=== PATIENT | male | born 1935 | race Caucasian/White ===

== ENCOUNTER 2016-11-17 11:29 | Outpatient (CLI) | payer MEDICARE | END 2016-11-17 11:30 | disposition home or self-care (01) | DX: G30.9 Alzheimer's disease, unspecified (principal); F02.80 Dementia in other diseases classified elsewhere, unspecified severity, without behavioral disturbance, psychotic disturbance, mood disturbance, and anxiety; R41.89 Other symptoms and signs involving cognitive functions and awareness ==

== ENCOUNTER 2017-06-18 11:25 | Outpatient (CLI) | payer MEDICARE | END 2017-06-18 11:26 | disposition EMS.NT | LOC: EMS 11:25 | PROVIDERS: ATTEND Surgery | DX: R40.4 Transient alteration of awareness (principal) ==

== ENCOUNTER 2017-06-18 12:51 | Emergency (ER) | payer MEDICARE ==
[2017-06-18 15:06] LABS: BASOPHILS # (AUTO) 0.1 10^3/uL (0.0-0.1); BASOPHILS % (AUTO) 0.6 %; EOSINOPHILS % (AUTO) 0.1 %; HCT - HEMATOCRIT 42.5 % (42.0-52.0); HGB - HEMOGLOBIN 14.1 g/dL (14.0-18.0); LYMPHOCYTES # (AUTO) 0.8 10^3/uL (1.5-3.5); LYMPHOCYTES % (AUTO) 6.1 %; MEAN CORPUSCULAR HEMOGLOBIN 26.8 pg (27.0-31.0); MEAN CORPUSCULAR HGB CONC 33.3 g/dL (32.0-36.0); MEAN CORPUSCULAR VOLUME 80.5 fL (80.0-94.0); MEAN PLATELET VOLUME 8.1 fL (7.4-11.4); MONOCYTES # (AUTO) 0.9 10^3/uL (0.0-1.0); NEUTROPHILS # (AUTO) 10.7 10^3/uL (1.5-6.6); NEUTROPHILS % (AUTO) 86.2 %; NUCLEATED RED BLOOD CELLS AUTO 0.1 /100WBC; RED BLOOD COUNT 5.27 10^6/uL (4.70-6.10); RED CELL DISTRIBUTION WIDTH 14.6 % (12.0-15.0); UNCORRECTED WHITE BLOOD COUNT 12.4 x10^3/uL; WHITE BLOOD COUNT 12.4 x10^3/uL (4.8-10.8)
[2017-06-18 15:19] LABS: ALBUMIN/GLOBULIN RATIO 1.1 (1.0-2.2); CALCIUM 9.5 mg/dL (8.5-10.3); CREATININE 1.3 mg/dL (0.6-1.2); TOTAL PROTEIN 7.6 g/dL (6.7-8.2)
--- NOTE | 2017-06-18 16:17 | ED Physician Documentation ---
PD HPI SYNCOPE - Stated complaint Stated Complaint: SYNCOPE - Chief complaint Chief Complaint: Neuro - History obtained from History obtained from: Patient - History of Present Illness Witnessed: Witnessed Timing - onset: How many hours ago (1) Duration: Seconds (he was helping in soup kitchen, had not had anything to eat nor drink in the morning. He got up and walked to the back of the area and felt abruptly lightheaded then fainted. He denies injury. Was out for just few seconds, with report of looking pale at the time. Improved promptly. EMS called and the patient was feeling okay enroute to the ED.) Preceding symptoms: Light headed. No: Headache, Chest pain, Abdominal pain, Nausea / vomiting Associated symptoms: No: Headache, Chest pain, Abdominal pain Contributing factors: Decreased PO intake, Just stood up. No: Recent med change , Noxious stimulae Injury occurred: No: Fell, Head injury, Neck injury Similar symptoms before: Has not had sx before Recently seen: Not recently seen Review of Systems Constitutional: denies: Fever, Chills Nose: denies: Rhinorrhea / runny nose, Congestion Throat: denies: Sore throat Cardiac: denies: Chest pain / pressure, Palpitations Respiratory: denies: Cough GI: denies: Abdominal Pain, Nausea, Vomiting, Diarrhea : denies: Dysuria, Frequency Skin: denies: Rash, Lesions Musculoskeletal: denies: Extremity swelling Neurologic: reports: Syncope. denies: Focal weakness, Numbness, Altered mental status, Headache, Head injury Endocrine: denies: Weight loss Immunocompromised: denies: Immunocompromised PD PAST MEDICAL HISTORY - Past Medical History Past Medical History: Yes Cardiovascular: Hypertension Endocrine/Autoimmune: None : Benign prostate hypertrophy, Indwelling catheter, Other - Past Surgical History Past Surgical History: Yes General: Appendectomy Ortho: Other - Present Medications Home Medications: Ambulatory Orders Medication Instructions Recorded Confirmed Amoxicillin 500 mg ORAL TID 08/12/16 08/12/16 Hydrochlorothiazide 25 mg ORAL DAILY 08/12/16 08/12/16 Sulfamethoxazole/Trimethoprim 1 each PO BID 7 Days 08/12/16 [Bactrim Ds Tablet] Tamsulosin [Flomax] 0.4 mg ORAL DAILY 08/12/16 08/12/16 Potassium Chloride 10 meq PO DAILY #7 tablet.er 06/18/17 - Allergies Allergies/Adverse Reactions: Allergies Allergy/AdvReac Type Severity Reaction Status Date / Time No Known Drug Allergies Allergy Verified 08/12/16 12:03 - Social History Does the pt smoke?: No Smoking Status: Never smoker Does the pt drink ETOH?: Yes Does the pt have substance abuse?: No - Immunizations Immunizations are current?: Yes PD ED PE NORMAL - Vitals Vital signs reviewed: Yes - General General: Alert and oriented X 3, No acute distress, Well developed/nourished - HEENT HEENT: Ears normal, Moist mucous membranes, Pharynx benign - Neck Neck: Supple, no meningeal sign, No adenopathy - Cardiac Cardiac: RRR, No murmur - Respiratory Respiratory: Clear bilaterally - Abdomen Abdomen: Soft, Non tender - Back Back: No CVA TTP - Derm Derm: Normal color, Warm and dry - Extremities Extremities: No deformity, No tenderness to palpate, No edema, No calf tenderness / cord - Neuro Neuro: Alert and oriented X 3, No motor deficit, No sensory deficit, Normal speech - Psych Psych: Normal mood, Normal affect Results - Vitals Vitals: Vital Signs - 24 hr 06/18/17 06/18/17 06/18/17 13:08 16:00 17:08 Temperature 36.6 C 37.2 C Heart Rate 62 57 L 66 Respiratory 16 18 18 Rate Blood Pressure 123/71 150/49 H 128/48 L O2 Saturation 100 100 99 Oxygen O2 Source Room air - EKG (time done) 14:21 Rate: [place] (52) Rhythm: Sinus bradycardia, Other [place]: Normal Intervals: Normal [place] QRS: Normal Ischemia: Normal ST segments. No: ST elevation c/w ischemia, ST depression - Labs Labs: Laboratory Tests 06/18/17 06/18/17 06/18/17 14:52 14:52 14:52 WBC 12.4 H RBC 5.27 Hgb 14.1 Hct 42.5 MCV 80.5 MCH 26.8 L MCHC 33.3 RDW 14.6 Plt Count 190 MPV 8.1 Neut # 10.7 H Lymph # 0.8 L Noble # 0.9 Eos # 0.0 Baso # 0.1 Absolute Nucleated RBC 0.01 Nucleated RBCs 0.1 Sodium 140 Potassium 3.0 L Chloride 100 L Carbon Dioxide 29 Anion Gap 11.0 BUN 28 H Creatinine 1.3 H Estimated GFR (MDRD) 53 L Glucose 121 H Calcium 9.5 Total Bilirubin 1.0 AST 17 ALT 15 Alkaline Phosphatase 83 Troponin I < 0.04 Total Protein 7.6 Albumin 4.0 Globulin 3.6 Albumin/Globulin Ratio 1.1 Lipase 34 PD MEDICAL DECISION MAKING - ED course Complexity details: reviewed results, re-evaluated patient (he is looking good in ED, without lightheadedness or such. Sounds like his postural syncope relates to no fluid/food intake today and then was helping in soup kitchen (but he says it was not too hot there). ), considered differential, d/w patient Departure - Departure Disposition: Home, Self Care Clinical Impression: Episode of syncope Qualifiers: Syncope type: unspecified Qualified Code(s): R55 - Syncope and collapse Condition: Stable Record reviewed to determine appropriate education?: Yes Instructions: ED Fainting Unkn Cause Follow-Up: Arielle Moscoso ARNP [Primary Care Provider] - Prescriptions: Potassium Chloride 10 meq PO DAILY #7 tablet.er Comments: Keep well hydrated. Try to have some breakfast in the mornings before heading out for the day. Drink water through the day. It sounds like your fainting today may have been related to under hydration. Follow-up with your primary care if you have repeated episodes of fainting or lightheadedness or associated with any chest pain, trouble breathing, headaches or other concerns. Your potassium is a bit low which might relate to 20 her blood pressure medicines that you take (the diuretic). Take a potassium supplement daily for a week. Follow-up with your primary care. Discharge Date/Time: 06/18/17 17:09
[2017-06-18] MEDS ORDERED: POTASSIUM BICARB 25 MEQ TABLET PO STA (16:46)
[2017-06-18] MEDS ORDERED: POTASSIUM BICARB 25 MEQ TABLET PO ONE (17:06)
[2017-06-18 17:09] VITALS: BP 128/48
== END 2017-06-18 17:09 | disposition home or self-care (01) ==
LOC: ED 12:51
DX: R55 Syncope and collapse (principal); I10 Essential (primary) hypertension; N40.0 Benign prostatic hyperplasia without lower urinary tract symptoms
CPT/HCPCS: 36415; 80053; 83690; 84484; 85025; 93005; 99283; 99284; A9270

== ENCOUNTER 2017-07-13 13:53 | Outpatient (CLI) | payer MEDICARE ==
[2017-07-13 18:52] LABS: BUN - BLOOD UREA NITROGEN 28 mg/dL (6-20); CALCIUM 9.4 mg/dL (8.5-10.3); CARBON DIOXIDE - CO2 28 mmol/L (21-32); CHLORIDE 99 mmol/L (101-111); GFR - MDRD 72 (>89); GLUCOSE 84 mg/dL (70-100); POTASSIUM 3.5 mmol/L (3.5-5.0); SODIUM 137 mmol/L (135-145)
== END 2017-07-13 13:54 | disposition home or self-care (01) ==
LOC: LAB.S 13:53
PROVIDERS: ATTEND Nurse Practitioner Family
DX: E87.6 Hypokalemia (principal); Z12.11 Encounter for screening for malignant neoplasm of colon; R41.89 Other symptoms and signs involving cognitive functions and awareness; Z13.29 Encounter for screening for other suspected endocrine disorder
CPT/HCPCS: 36415; 80048; 84443

== ENCOUNTER 2017-12-15 09:15 | Outpatient (CLI) | payer MEDICARE ==
--- NOTE | 2017-12-15 13:43 | XRAY Report ---
MODIFIED BARIUM SWALLOW: 12/15/2017 CLINICAL INDICATION: Dysphagia, Alzheimer's. FINDINGS: Various consistencies of barium were prepared and administered in conjunction with Speech Pathology. There was no evidence of penetration or aspiration with any administered consistency. Please also refer to full report from Speech Pathology for further findings. IMPRESSION: NO EVIDENCE OF PENETRATION OR ASPIRATION. FLUOROSCOPY TIME: One minute 44 seconds; 1 spot image obtained (cinefluoroscopy recorded). TD: 12/15/2017 13:42
== END 2017-12-15 09:16 | disposition home or self-care (01) ==
LOC: DI 09:15
PROVIDERS: ATTEND Nurse Practitioner Family
DX: R13.10 Dysphagia, unspecified (principal); G30.9 Alzheimer's disease, unspecified; F02.80 Dementia in other diseases classified elsewhere, unspecified severity, without behavioral disturbance, psychotic disturbance, mood disturbance, and anxiety
CPT/HCPCS: 74230

== ENCOUNTER 2018-02-08 08:00 | Outpatient (CLI) | payer MEDICARE | END 2018-02-08 23:59 | LOC: LAB.S 08:00 | PROVIDERS: ATTEND Nurse Practitioner Family | DX: R94.6 Abnormal results of thyroid function studies (principal) | CPT/HCPCS: 36415; 84443 ==

== ENCOUNTER 2018-05-24 11:02 | Outpatient (CLI) | payer MEDICARE | END 2018-05-24 11:03 | disposition home or self-care (01) | LOC: LAB.F 11:02 | PROVIDERS: ATTEND Student in an Organized Health Care Education/Training Program | DX: N21.0 Calculus in bladder (principal); R97.20 Elevated prostate specific antigen [PSA]; N40.1 Benign prostatic hyperplasia with lower urinary tract symptoms; R35.0 Frequency of micturition | CPT/HCPCS: 36415; 84153 ==

== ENCOUNTER 2018-12-28 08:00 | Outpatient (CLI) | payer MEDICARE ==
[2018-12-28 19:27] LABS: CALCIUM 9.3 mg/dL (8.5-10.3); CREATININE 1.2 mg/dL (0.6-1.2)
[2018-12-28 19:32] LABS: BASOPHILS # (AUTO) 0.1 10^3/uL (0.0-0.1); BASOPHILS % (AUTO) 0.9 %; EOSINOPHILS # (AUTO) 0.2 10^3/uL (0.0-0.7); EOSINOPHILS % (AUTO) 3.3 %; HGB - HEMOGLOBIN 13.2 g/dL (14.0-18.0); LYMPHOCYTES # (AUTO) 1.2 10^3/uL (1.5-3.5); LYMPHOCYTES % (AUTO) 16.7 %; MEAN CORPUSCULAR HEMOGLOBIN 26.3 pg (27.0-31.0); MEAN CORPUSCULAR HGB CONC 33.1 g/dL (32.0-36.0); MEAN CORPUSCULAR VOLUME 79.5 fL (80.0-94.0); MEAN PLATELET VOLUME 8.4 fL (7.4-11.4); MONOCYTES # (AUTO) 0.9 10^3/uL (0.0-1.0); NEUTROPHILS # (AUTO) 4.8 10^3/uL (1.5-6.6); NEUTROPHILS % (AUTO) 67.1 %; PLT - PLATELET COUNT 244 10^3/uL (130-450); RED BLOOD COUNT 5.03 10^6/uL (4.70-6.10); RED CELL DISTRIBUTION WIDTH 14.5 % (12.0-15.0); WHITE BLOOD COUNT 7.2 x10^3/uL (4.8-10.8)
[2018-12-28 19:41] LABS: PSA FREE 1.03 ng/mL (0.16-2.81)
[2018-12-28 19:42] LABS: PSA TOTAL 4.55 ng/mL (0.000-2.000)
== END 2018-12-28 23:59 | disposition home or self-care (01) ==
LOC: LAB.N 08:00
PROVIDERS: ATTEND Physician Assistant Medical
DX: N40.1 Benign prostatic hyperplasia with lower urinary tract symptoms (principal); G30.9 Alzheimer's disease, unspecified; F02.80 Dementia in other diseases classified elsewhere, unspecified severity, without behavioral disturbance, psychotic disturbance, mood disturbance, and anxiety; I10 Essential (primary) hypertension
CPT/HCPCS: 36415; 80048; 84153; 84154; 85025

== ENCOUNTER 2020-09-28 04:34 | Outpatient (CLI) | payer MEDICARE | END 2020-09-28 04:35 | disposition E | LOC: EMS 04:34 | PROVIDERS: ATTEND Surgery ==